=== PATIENT | female | born 1980 | race Caucasian/White ===

== ENCOUNTER 2017-08-16 05:00 | Inpatient (IN) | payer BC, SELFPAY ==
[2017-08-16] VITALS (20 sets, daily range): BP systolic 90–110; BP diastolic 43–64; PULSE 62–80; RESP 16; TEMP 35.9–37; O2SAT 96–100; BMI 36.2
[2017-08-16 06:05] LABS: Absolute Lymphocyte Count 2.31 X10^3/ul (0.83-4.51); Absolute Neutrophil Count 5.7 X10^3/uL (2.0-7.7); Basophil# 0.02 X10^3/uL; Basophil% 0.2 % (0-1); Eosinophil# 0.21 X10^3/uL; Eosinophils% 2.4 % (0-5); Hematocrit 36.1 % (37-47); Hemoglobin 11.7 g/dl (12.0-15.0); Lymphocyte # 2.31 X10^3/ul (4.0); Lymphocyte % 26.1 % (19-41); Mean Corp Hgb Conc 32.4 g/gl (32-36); Mean Corpuscular Hgb 29.9 pg (27.0-32.0); Mean Corpuscular Volume 92.3 fL (81-99); Mean Platelet Vol. 9.4 fl (6.2-12.0); Monocyte# 0.59 X10^3/uL; Monocyte% 6.7 % (0-10); Neutrophil # 5.67 X10^3/uL (2.7-7.7); Neutrophil % 63.9 % (47-70); Platelet Count 228 K/mm3 (150-450); RBC Distribution Width CV 15.2 % (11.6-14.6); RBC Distribution Width SD 49.6 fl (35.1-43.9); Red Blood Count 3.91 M/mm3 (4.2-5.4); White Blood Count 8.9 K/mm3 (4.4-11.0)
[2017-08-16 06:08] LABS: POSITIVE COUNT NO; POSITIVE DIFFERENTIAL NO; POSITIVE MORPHOLOGY NO
[2017-08-16] MEDS: Lactated Ringers 1,000 ML 999 ML IV (06:30)
[2017-08-16] MEDS: Cefazolin 2 GM in 0.9% Normal Saline 100 ML IV (07:25)
--- NOTE | 2017-08-16 07:41 | FALS_PTH ---
PATIENT: LUIS ALBERTO CALVERT LOC: [facility] U#:[id number] AGE/SX: 37/F ROOM: [facility] RE08/16/[address]: Dr. Renu Goldstein, MDDOB: 1980 BED: 1 DIS: 08/18/2017 SPEC #: [id number] RECD: 08/16/17 09:14 STATUS: JOSE ROD #: [id number] DAVID: 08/16/17 07:[address]: Renu Goldstein DEPT: SURGICAL PATHOLOGY RECD BY: Bill Tadeo ENTERED: 08/16/17 09:38 SP TYPE: FALL TUBES OTHR DR: Dr. Bola Lepe, DO Tissues: Fallopian tube Procedures: Surgery Specimen Level II HEADER OPERATION: Tubal ligation PRE-OP DIAGNOSIS: Not noted TISSUE SUBMITTED: Fallopian tube, sutures in right tube MICROSCOPIC DIAGNOSIS Bilateral fallopian tubes, tubal ligation: Completely transected segments of bilateral fallopian tubes, no pathologic diagnosis SCOTT:luis manuel 08/17/17 MICROSCOPIC DESCRIPTION Slides are reviewed. GROSS DESCRIPTION Received in fixative is one container labeled with the patient's name and designated right tube with a stitch. The specimen consists of two tubular pieces of nobles-pink soft tissue, right tube identified by a suture and measures 1 cm in length and 0.6 in diameter. It is inked black. Left tube measures 2 cm in length and 0.7 cm in diameter.. The entire specimen is submitted in one cassette. Both pieces will be sectioned at the time of embedding. SCOTT:luis manuel 08/16/17 TC:4 CPT: 55955 x2
[2017-08-16] MEDS: Oxytocin 30 units/NS 500 ml 30 UNITS/500 ML IV.SOLN 167 UNITS IV (08:00)
[2017-08-16] MEDS: Ketorolac 30 MG/ML Syringe IV ×3 (08:00→18:20)
--- NOTE | 2017-08-16 08:08 | OP.PCM_ITS ---
Delivery Classification: Scheduled Final DENISE: 08/22/17 Gestational age: 39 Weeks and 1 Days Indications: elective repeat cs and btl Indications for : Repeat Elective , Desires elective sterilization Description of Procedure: Surgeon: Dr. Renu Goldstein [employer] Construction Worker: CALIXTO Funes Procedure performed: Repeat section, bilateral partial salpingectomy Anesthesia: Spinal Preoperative diagnosis: Term gestation 39.1 weeks gestation for an elective repeat section, desires sterilization Postoperative Diagnosis: same- live female infant Findings: Live female infant born without complication. clear amniotic fluid. Delayed cord clamping performed. Normal tubes and ovaries bilaterally. Partial salpingectomy performed without complication. apgars 9/10 and weight [id number] EBL: 700 cc Implantable devices: None Operative note: After informed consent was obtained the patient was taken to the operating room she was given spinal anesthesia. He was placed in the supine position. She was then prepped and draped in normal sterile fashion. Once spinal anesthesia was found to be adequate skin incision was made with a scalpel in a Pfannenstiel fashion. It was carried down to the underlying layer of the fascia. Fascia was then incised midline with scapel and extended laterally using curved purcell. 2 straight Amanda's were placed in the superior aspect of the fascial edge and the rectus muscles were dissected off [bluntly]. Attention was then turned to the inferior aspect where again the fascial edge was grasped with 2 straight Amanda clamps tented up and the rectus muscle dissected off sharply. recutus muscles seperated in midline bluntly. Using blunt force the peritoneum was then entered. Metzenbaums were used to take down the rectus muscles inferiorly as well as the peritoneum. At this time the vesicouterine peritoneum was identified. uterine incision made with scalpel. uterus entered bluntly. The membranes were ruptured amniotic fluid clear. Infant's head was then brought to the uterine incision was delivered atraumatically followed by the rest infant's body. At this time delayed cord clamping was performed mouth nose were suctioned. was then handed to the waiting nursery team. The placenta was then removed with gentle traction. The uterus was removed from the intra-abdominal cavity is wrapped in a moist lap. He was cleared of all clots and debris using a moist lap. Ring clamps were placed on the uterine angles. #1 Vicryl suture was used in a running locked fashion for the first layer. At this time then the uterus was placed back into abdominal cavity uterine incision was evaluated and noted to be of good hemostasis. Tubes and ovaries were evaluated they were normal. The tubes were grasped in an avascular area with the [place] 0- plain gut suture was used to create a knuckle this was doubly secured. A portion of the tube was then resected using the Metzenbaum scissors. And the ends were coagulated using the Bovie. Great hemostasis was appreciated at this time the uterine incision was again evaluated good hemostasis was appreciated. The peritoneum was grasped with Kellys. Peritoneum was reapproximated using #2 Vicryl suture in a running fashion. The fascia was then reapproximated using #1 Vicryl in a running fashion. Subcutaneous layer was evaluated and Bovie was used for any small oozing that was noted per #2-0 plain gut suture was then used to reapproximate the subcutaneous layer 4-0 monocryl was used to reapproximate the skin in a subcutaneous fashion. Dry sterile dressing was applied. Instrument lap needle count were correct ?2. Anticipated normal postoperative course for this patient. Amniotic Membrane Rupture Type: Artificial Amniotic Fluid Description: Clear Placenta Disposition: [facility] Drain: Salas to straight drain Cord Entanglement: None Cord Vessel Description: 3 Vessels Esitmated Blood Loss (ml): 700 Gender: Female (1 minute): 9 (5 minute): 10 Delayed cord clamping: Yes Pre-op Antibiotic Given: Ancef 2 grams IV x1 Pt instructed on risks of surgery: Bleeding, Anesthesia Risks, Infection, Need for Future C-Sections, Permanency, Failure Rate of 1 to 2%, Injury to surrounding structure(s) including bowel and bladder, Availability of other non- permanent control options Complications: None - Admit VTE Documentation VTE Present on Admission: Yes VTE Mechan Device Prophylaxis: SCD's VTE Pharm Prophylaxis ordered?: No
[2017-08-16] MEDS: Lactated Ringers 1,000 ML 100 ML IV (09:11)
[2017-08-16] MEDS: DiphenhydrAMINE 25 MG Capsule PO ×2 (10:32→20:04)
--- NOTE | 2017-08-16 13:06 | DCINST_ITS ---
Discharge Diet: No Restrictions Discharge Activity: Return to Normal Activity, May Not Drive - for 2 weeks, May not drive while taking narcotic pain medications., May Shower, May Take a Tub Bath - in 7 days. May resume sexual activity in: 4-6 weeks Lifting Restrictions: 20 pounds Additional Activity Instructions:: Nothing in the vagina for 4-6 weeks. You may return to work/school in 6 weeks. Call your doctor if your incision/area has: Continuous Slow Oozing, Sudden Increased Bleeding, Increased Pain/ Swelling, Increased Redness, Foul Smelling Discharge Call your doctor if you observe: Fever of 101 or Higher, Using more than one pad per hour - for 2 hours Suture Line Care: Avoid Pulling/Pushing, Avoid Pinching/Bending Cleanse incision/area with: Keep Dressing Clean & Dry Additional Instructions: If you experience any of the following, contact your healthcare provider. * Bleeding that soaks a pad every hour for 2 hours * Fever 100.4 or higher * Unrelieved incision or abdominal pain * Swelling, redness, discharge or bleeding from your incision or episiotomy site * Your incision begins to separate * Problems urinating (including inability to urinate or burning while urinating) . * Visual changes * Severe headache * Flu-like symptoms * Pain or redness in one of both of your breasts * Pain, warmth, tenderness or swelling in your legs, especially the calf area * Frequent nausea and vomiting * Symptoms of depression or anxiety If you experience any of the following, call 911 or go to the nearest Emergency Room. * Chest pain * Problems breathing * Seizure activity * Partial or complete paralysis of a body part, slurred speech, weakness or drooping of the face, or a sudden inability to walk or hold your balance Allergies/Adverse Reactions: Allergies No Known Allergies Allergy (Verified 12/01/15 10:46) Medications to take at Discharge Ferrous Sulfate 325 mg PO BID 12/01/15 Levothyroxine [Synthroid] 112 mcg PO DAILY 12/01/15 Vits [Prenatabs FA ] 1 tablet PO DAILY 12/01/15 Ibuprofen [Motrin] 800 mg PO TID PRN PRN #60 tab 08/16/17 Oxycodone HCl/Acetaminophen [Percocet 5-325] 1 tablet PO Q6H PRN PRN 7 Days #30 tablet 08/16/17 Senna/Docusate Sodium [Senokot-S] 1 tab PO DAILY PRN #30 tab 08/16/17 SimETHICONE [Mylicon] 80 mg PO PCHS PRN #30 tab 08/16/17 The following prescriptions were given: Oxycodone HCl/Acetaminophen [Percocet 5-325] 1 tablet PO Q6H PRN PRN 7 Days #30 tablet PRN Reason: Pain Ibuprofen [Motrin] 800 mg PO TID PRN PRN #60 tab PRN Reason: Pain Senna/Docusate Sodium [Senokot-S] 1 tab PO DAILY PRN #30 tab PRN Reason: Constipation SimETHICONE [Mylicon] 80 mg PO PCHS PRN #30 tab PRN Reason: Indigestion/stomach pain Follow-Up: Call to make an appointment with your doctor for an incision check in 1-2 weeks. You will also need a 6 week post- follow up appointment. Please Follow Up With: Renu Goldstein MD - Call to make an appointment for an incision check in 1-2 [phone] When: You will need a post- check in 6 weeks. Primary Care Physician: Bola Lepe DO [Primary Care Provider] -
[2017-08-16] MEDS: 0.9% Saline Lock 10 ML Syringe IV (18:22)
[2017-08-17] VITALS (7 sets, daily range): BP systolic 90–118; BP diastolic 57–68; PULSE 70–92; RESP 16; TEMP 36.2–36.6; O2SAT 96–98
[2017-08-17] MEDS: Ketorolac 30 MG/ML Syringe IV ×4 (00:28→19:08)
[2017-08-17] MEDS: Lactated Ringers 1,000 ML 100 ML IV (00:30)
[2017-08-17] MEDS: DiphenhydrAMINE 25 MG Capsule PO (04:25)
[2017-08-17] MEDS: Levothyroxine 112 MCG Tablet PO (06:36)
[2017-08-17 06:55] LABS: Hematocrit 32.1 % (37-47); Hemoglobin 10.2 g/dl (12.0-15.0); Mean Corp Hgb Conc 31.8 g/gl (32-36); Mean Corpuscular Hgb 29.4 pg (27.0-32.0); Mean Corpuscular Volume 92.5 fL (81-99); Mean Platelet Vol. 9.1 fl (6.2-12.0); Platelet Count 178 K/mm3 (150-450); RBC Distribution Width CV 15.7 % (11.6-14.6); RBC Distribution Width SD 52.8 fl (35.1-43.9); Red Blood Count 3.47 M/mm3 (4.2-5.4); White Blood Count 10.5 K/mm3 (4.4-11.0)
[2017-08-17 06:56] LABS: Scan Indicated on CBC? Y/N NO
--- NOTE | 2017-08-17 08:23 | PCM.PN.OB ---
Subjective: pt seen at bedside, doing well. pt reports good pain control. lochia mild. denies cp, sob, dizziness. pt reports passing flatus. - Physical Exam General: Alert, Oriented x3 Abdomen: Soft, Non-Distended, Passing Flatus, - - fundus firm. incision site dry Extremities: No Calf Tenderness Vital Signs Temp Pulse Resp BP Pulse Ox 97.5 F L 79 16 108/64 98 08/17/17 03:30 08/17/17 03:30 08/17/17 06:55 08/17/17 03:30 08/17/17 06:55 Oxygen Delivery Method Room Air Weight: 95.708 kg Body Mass Index (BMI) 36.2 Intake and Output for Last 24 Hours 08/15/17 08/16/17 08/17/17 23:59 23:59 23:59 Intake Total 3284 / 3284 Output Total 1974 1400 / 1400 Balance 1309 / 1309 -1400 / -1400 Laboratory Tests Past 24 Hrs 08/17/17 06:40 WBC 10.5 RBC 3.47 L Hgb 10.2 L Hct 32.1 L MCV 92.5 MCH 29.4 MCHC 31.8 L RDW 15.7 H RDW Differential 52.8 H Plt Count 178 MPV 9.1 Medical Necessity - Tobacco Use Smoking Status: Never smoker Assessment/Plan POD#1, doing well routine care pain mgmt ambulation
[2017-08-17 11:40] LABS: Pathology Specimen OB SEE PATHOLOGY REPORT
[2017-08-17] MEDS: 0.9% Saline Lock 10 ML Syringe IV ×2 (12:27→19:08)
[2017-08-17] MEDS: Senna/Docusate Sodium 1 Tablet PO (12:36)
[2017-08-18] MEDS: Ketorolac 30 MG/ML Syringe IV (01:19)
[2017-08-18 01:25] VITALS: BP 122/71; PULSE 69; RESP 16; TEMP 36.4; O2SAT 98
[2017-08-18] MEDS: Levothyroxine 112 MCG Tablet PO (06:10)
--- NOTE | 2017-08-18 07:59 | PCM.PN.OB ---
Subjective: pt seen at bedside, doing well. pt reports good pain control. lochia mild. passing flatus - Physical Exam General: Alert, Oriented x3 Abdomen: Soft, Non-Distended, Passing Flatus, - - fundus firm. dressing dry and intact Extremities: No Calf Tenderness Vital Signs Temp Pulse Resp BP Pulse Ox 97.6 F L 69 16 122/71 H 98 08/18/17 01:25 08/18/17 01:25 08/18/17 01:25 08/18/17 01:25 08/18/17 01:25 Oxygen Delivery Method Room Air Weight: 95.708 kg Body Mass Index (BMI) 36.2 Intake and Output for Last 24 Hours 08/16/17 08/17/17 08/18/17 23:59 23:59 23:59 Intake Total 3284 / 3284 Output Total 1974 1900 / 1900 Balance 1309 / 1309 -1900 / -1900 Medical Necessity - Tobacco Use Smoking Status: Never smoker Assessment/Plan POD#2, doing well routine care pain mgmt dc home
[2017-08-18 08:00] VITALS: BP 109/60; PULSE 70; RESP 17; TEMP 36.7; O2SAT 99
--- NOTE | 2017-08-18 08:01 | PCM.DC.BLA ---
Discharge Summary Date of Admission: 08/16/17 Date of Discharge: 08/18/17 Summary: Patient was admitted to [facility] on 08/16/2017 for a scheduled repeat section and bilateral tubal ligation at 39.[address] Renu Goldstein. Had an uncomplicated procedure followed by an uncomplicated postoperative course. She was discharged home on postoperative day #2 on 08/18/2017 in stable condition.
== END 2017-08-18 10:05 | disposition home or self-care (01) | DRG 766 ==
PROVIDERS: Admitting Provider Obstetrics & Gynecology; Family Provider Student in an Organized Health Care Education/Training Program; PCP Student in an Organized Health Care Education/Training Program; Visit Provider Obstetrics & Gynecology
PROC: 10D00Z1 Extraction of Products of Conception, Low, Open Approach (ICD-10-PCS; CPT 59514; principal; 2017-08-16 07:15)
DX: O34.211 Maternal care for low transverse scar from previous cesarean delivery (principal); Z3A.39 39 weeks gestation of pregnancy; Z37.0 Single live birth; O99.284 Endocrine, nutritional and metabolic diseases complicating childbirth; E05.90 Thyrotoxicosis, unspecified without thyrotoxic crisis or storm; Z79.899 Other long term (current) drug therapy
CPT/HCPCS: 36415; 85025; 85027; 86850; 86900; 88302; 99218; J7120; A4216; G0378; J2405

== ENCOUNTER 2019-12-25 05:59 | Day surgery (SDC) | payer BC, SELFPAY ==
[2019-11-06 14:58] VITALS: BMI 36.2
[2019-12-18 10:51] LABS: Thyroid Stim Hormone (TSH) 2.96 uIU/mL (0.358-3.74)
[2019-12-25 06:31] VITALS: BP 119/72; PULSE 85; RESP 16; TEMP 36.8; O2SAT 100; BMI 29.7
[2019-12-25] MEDS: Lactated Ringers 1,000 ML 100 ML IV ×2 (06:36→08:51)
--- NOTE | 2019-12-25 07:17 | HP.PCM_ITS ---
History and Physical Date of Admission: 12/25/19 [facility] [address] [place] [id number] MR#: [id number] Acct: [id number] Name: LUIS ALBERTO CALVERT Rep #: [id number] : 1980 Provider: Dr. Jung Drummond MD Age/Sex: 39/F Location: [facility] Status: Signed Intake Vital Signs 11/06/19 BMI 36.2 11/06/19 Height 5 ft 4 in 11/06/19 Weight: 168 lb 7 oz 11/06/19 BMI 28.9 11/06/19 BP 120/72 11/06/19 Blood Pressure Location Rt brachial 11/06/19 Position Sitting 11/06/19 Respiration 16 11/06/19 Pulse 75 11/06/19 Temp 98.5 F 11/06/19 Temp Source Temporal 11/06/19 Pulse Oximetry (%) 100 11/06/19 Oxygen Delivery Method room air Intake Visit Reasons: UMBILICAL HERNIA Chief Complaint: umbilical hernia Uniform Room Attendant Required: No Is patient in pain?: No Allergies No Known Allergies Allergy (Verified 11/06/19 14:45) Medications Ibuprofen [Motrin] 800 mg PO TID PRN PRN #60 tab 08/16/17 [Rx Confirmed 11/06/19] drospirenone 3 mg-ethinyl estradiol 0.02 mg tablet tab PO 11/06/19 [History Confirmed 11/06/19] levothyroxine 125 mcg tablet 125 mcg PO DAILY tab 11/06/19 [History Confirmed 11/06/19] sertraline 50 mg tablet ea PO 11/06/19 [History Confirmed 11/06/19] Is last menstrual period known: No Post menopausal: No Patient : No PFSH Medical History Anxiety (Acute) Asthma (Acute) Hypothyroidism (Acute) Surgical History History of 3 sections (Acute) Family History Father Heart disease Cancer skin Mother Cancer cervical Sister Asthma Social History (Updated 11/06/19 @ 14:[address] Sea Drummond MD) Smoking Status: Never smoker HPI HPI Surgical H&P: Yes HPI: LUIS ALBERTO CALVERT, is a 39 F who presents to the office today for Evaluation for umbilical hernia. Patient had this since approximately 6 months into her last which is almost 3 years ago. She has had no change in her bowel or bladder habits she has occasional discomfort. ROS General General: No weight change, appetite, fatigue, colon cancer, breast cancer or weakness HEENT HEENT: No difficulty swallowing, eye injury, eye surgery, swollen glands or hoarseness Endo Endocrine: Yes thyroid disease; no diabetes mellitus, thyroid cancer, Hair loss, heat intolerance or cold intolerance Cardio Cardiovascular: No murmur, pacemaker, heart disease, atrial fibrillation, high blood pressure, heart attack, heart stent, palpitations, shortness of breat with exertion or chest pain Psych Psychiatric: Yes anxiety; no depression or hearing voices Resp Respiratory: No shortness of breath, No sleep apnea, No cough, No COPD, Yes asthma, No emphysema, No wheezing Gastro Gastrointestinal: No abdominal pain, No nausea or vomiting, No diarrhea, No constipation, No blood in stool, No acid reflux, No hemorrhoids, No ulcers, No gallbladder problem, No black,tarry stools Bishnu Hematologic: No blood thinners, No blood disorders, No bleeding, No anemia, No blood clots Neuro Neurologic: No weakness Exam Const General: no acute distress, well developed, well hydrated Orientation: oriented to person, oriented to place, oriented to time [facility] Head: normocephalic, atraumatic Ears: external ears normal Mouth: moist mucous membranes Eyes Sclera: sclerae normal Pupils: normal by confrontation Neck Neck: no lymphadenopathy noted Neck mass: No Thyroid: thyroid normal, symmetrical Chest Chest palpation & inspection: normal inspection of the chest Resp Effort & Inspection: normal respiratory effort Auscultation: clear to auscultation bilaterally Percussion: percussion normal Cardio Rate: regular rate Rhythm: regular rhythm Heart Sounds: no murmurs GI Palpation: soft, no hepatosplenomegaly, no masses, tender Rectal Exam: other Other: Small umbilical reducible hernia is identified. Rectal exam deferred. Extrem General: normal to inspection, no clubbing, cyanosis or edema Assessment & Plan Problems 1. Umbilical hernia without obstruction and without gangrene K42.9 Plan My plan is to perform an Umbilical hernia repair with mesh. The planned surgical procedure was discussed extensively with the patient. The risks, benefits, anticipated outcomes and possible complication were mentioned. The patient understands that all hernia repair surgery has a chance of recurrence and/or chronic post-operative pain. My staff has also explained the procedure in understandable terms and the patient was given the option to take printed material concerning the planned procedure. The patient had the opportunity to ask questions concerning the planned procedure. The patient freely consents to the planned procedure. Coding Level of Care Code Off vis,new,level 3 Diagnoses Umbilical hernia without obstruction and without gangrene K42.9 COVID (Procedure Consent) Procedure Criteria Procedure Criteria: Yes Elective The surgeon/proceduralist and patient have discussed in detail the risk of exposure to and/or potential harm posed by the COVID-19 virus with having a surgery/procedure at this time versus the risk of? delaying the surgery/procedure. It is not possible to know either the risk of delaying the surgery or procedure or chance of getting an infection with perfect accuracy, but a joint decision was made between the patient and the surgeon/proceduralist ?to proceed at this time with the scheduled surgery/procedure as indicated on the consent form. I have re-examined the patient. There are no clinical changes since date of exam.
[2019-12-25] MEDS: Cefazolin 2 GM in 0.9% Normal Saline 100 ML IV (07:22)
[2019-12-25] MEDS: BUPIVACAINE LIPOSOME/PF 20 ML VIAL OPERA.SITE (07:55)
--- NOTE | 2019-12-25 08:01 | PCM.DC.HER ---
Discharge Diet: Light diet - advance as tolerated Discharge Activity: Return to Normal Activity, May Drive - when you are no longer taking narcotic pain medications., May Shower - with the bandage in place 1-2 days after surgery. Lifting Restrictions: 20 pounds for 8 weeks. Additional Activity Instructions:: Climbing stairs is fine, walking is encouraged. Sitting in bed may be uncomfortable. Sitting up using your lateral muscles (sitting up sideways) is usually more comfortable. Do not drive, work heavy equipment of sign legal documents for 24 hours. If your hernia repair was an ingunial repair, you may have scrotal swelling, an ice pack and/or athletic support can provide more comfort. Pain medications may cause nausea, you should typically eat light foods as you take your pain medications. Pain medications may also cause constipation. If you have difficulty with this, discuss with your doctor. Call your doctor if your incision/area has: Continuous Slow Oozing, Sudden Increased Bleeding, Increased Pain/ Swelling, Increased Redness, Foul Smelling Discharge Call your doctor if you observe: Fever of 101 or Higher Suture Line Care: Avoid Pulling/Pushing, Avoid Pinching/Bending Additional Dressing/Incision Instructions:: Leave the operative bandage on for 2-3 days. When you remove the bandage, leave the steri-strips on place until your follow up appointment or they fall off. Allergies/Adverse Reactions: Allergies No Known Allergies Allergy (Verified 12/25/19 06:30) Medications to take at Discharge drospirenone 3 mg-ethinyl estradiol 0.02 mg tablet 1 tab PO DAILY 11/06/19 levothyroxine 125 mcg tablet 125 mcg PO DAILY tab 11/06/19 sertraline 50 mg tablet 50 ea PO DAILY 11/06/19 Oxycodone HCl/Acetaminophen [Percocet 5/325] 1 - 2 tablet PO Q4H PRN PRN 6 Days #30 tablet 12/25/19 The following prescriptions were given: Oxycodone HCl/Acetaminophen [Percocet 5/325] 1 - 2 tablet PO Q4H PRN PRN 6 Days #30 tablet PRN Reason: Pain Transmission Status: Sent to [facility] Primary Care Physician: Bola Lepe DO [Primary Care Provider] - Test Results: Test results from this visit will be discussed in further detail at your follow-up appointment, if applicable. Please Follow Up With: Sea Drummond MD - [phone] When: Plan to have a follow up appointment in 7 days. Call to schedule.
--- NOTE | 2019-12-25 08:01 | PCM.OPRPT ---
Problem List (1) Umbilical hernia Status: Acute Qualifiers: Obstruction and gangrene presence: without obstruction or gangrene Qualified Code(s): K42.9 - Umbilical hernia without obstruction or gangrene Report of Operation Date of Procedure: 12/25/19 Pre-Operative Diagnosis: Umbilical hernia Post-Operative Diagnosis: Same Surgery/Procedure Performed:: Umbilical hernia repair with mesh Type of Anesthesia:: General Anesthesiologist: Eugene Gold Estimated Blood Loss (mL): < 25 cc Description of Procedure: Patient was brought into the operating room. Placed in the supine position. Under excellent general trach intubation the abdomen was sterilely prepped and draped in usual fashion. Local was injected under the umbilicus a curvilinear incision was made. I dissected down identified an umbilical hernia dissected the umbilical hernia free from the underlying skin. I placed this umbilical defect in the preperitoneal fat back into its original space. I dissected underneath there was only a small defect but I was able to dissect the preperitoneal space free and I placed a small Ventralex hernia patch into the wound. I sutured this to the surrounding fascia with 0 Nurolon. Exparel was injected. I was pleased the mesh laid completely flat and I had good coverage. Wound was then brought together with deep dermal sutures of 3-0 Vicryl then a running 4-0 Monocryl. Steri-Strips were applied. Sterile dressings were applied. And the patient tolerated the procedure well. - Admit VTE Documentation VTE Present on Admission: No VTE Mechan Device Prophylaxis: SCD's VTE Pharm Prophylaxis ordered?: No Reason prophylaxis not ordered:: Treatment Not Indicated [id number]: [id number] Rpr umbil brennen reduc > 5 yr
[2019-12-25 08:27] VITALS: BP 110/61; BP 119/72; PULSE 100; RESP 16; TEMP 36.7; O2SAT 98
[2019-12-25 08:30] VITALS: BP 110/61; BP 119/72; PULSE 95; RESP 16; O2SAT 98
[2019-12-25 08:45] VITALS: BP 107/66; BP 119/72; PULSE 89; RESP 16; O2SAT 100
[2019-12-25 08:58] VITALS: BP 112/70; BP 119/72; PULSE 67; RESP 16; TEMP 36.7; O2SAT 100
[2019-12-25 10:53] VITALS: BP 103/59; BP 119/72; PULSE 71; RESP 18; TEMP 36.4; O2SAT 99
== END 2019-12-25 11:02 | disposition home or self-care (01) ==
LOC: SDC 06:01 → AC 06:02
PROVIDERS: Anesthesiology; PCP Student in an Organized Health Care Education/Training Program; Referring Provider Surgery; Visit Provider Surgery
PROC: (CPT 49585; principal; 2019-12-25 07:15)
DX: K42.9 Umbilical hernia without obstruction or gangrene (principal); Z11.59 Encounter for screening for other viral diseases; F41.9 Anxiety disorder, unspecified; E03.9 Hypothyroidism, unspecified; F32.9 Major depressive disorder, single episode, unspecified; J45.909 Unspecified asthma, uncomplicated; Z79.899 Other long term (current) drug therapy
CPT/HCPCS: 49585; 36415; 84443; 87635; C9803; J7120; C1781; J2405; U0003